=== PATIENT | female | born 1980 | race Caucasian/White ===

== ENCOUNTER 2018-01-29 00:12 | Emergency (ER) | payer OTHER ==
[2018-01-29 00:23] VITALS: RESP 18
--- NOTE | 2018-01-29 00:37 | ED ---
General Adult HPI - General Chief complaint: Alcohol Stated complaint: addiction Time Seen by Provider: 01/29/18 00:37 Source: patient Mode of arrival: ambulatory Limitations: no limitations - History of Present Illness Initial comments: Candy is a 37-year-old female who presents to the emergency department today for treatment of alcohol abuse and referral to treatment center. Patient reports that she drinks 2-3 bottles of wine daily and has done so for a number of months, her family has become concerned and at this point her and her family came to the emergency department for her to receive for outpatient treatment centers. states that she wakes up every morning shaking and feeling her heart race , she reports that the symptoms go away when she begins to drink. Patient states that she has never been through alcohol withdrawal, she's never had seizures or hallucinations when she is not drinking but she has been drinking daily for a long period of time. The patient denies any intent to harm herself. She recognizes that she has now called abuse problem. She's never been in treatment before. She has social support as her mother and father are at bedside to support her and her recovery. She reports that her last drink was earlier today. - Related Data Previous Rx's Medication Instructions Recorded LORazepam [Ativan] 0.5 mg PO BID #15 tab 04/20/15 chlordiazePOXIDE HCl [Librium] 50 mg PO QID #34 capsule 01/29/18 Allergies Allergy/AdvReac Type Severity Reaction Status Date / Time shellfish derived [Crab] Allergy Rash/Hives Verified 01/29/18 00:23 Review of Systems ROS Statement: Those systems with pertinent positive or pertinent negative responses have been documented in the HPI. ROS Other: All systems not noted in ROS Statement are negative. Past Medical History Additional Past Medical History / Comment(s): MITRAL VALVE PROLAPSE, HYPOGLYCEMIA History of Any Multi-Drug Resistant Organisms: None Reported Past Surgical History: Breast Surgery Additional Past Surgical History / Comment(s): breast reduction. chin, liposuction Past Psychological History: Anxiety Smoking Status: Current every day smoker Past Alcohol Use History: Abuse, Daily Past Drug Use History: None Reported General Exam Limitations: no limitations General appearance: alert Head exam: Present: atraumatic Eye exam: Present: normal appearance ENT exam: Present: normal exam Neck exam: Present: normal inspection, full ROM Respiratory exam: Absent: respiratory distress, wheezes Cardiovascular Exam: Present: regular rate GI/Abdominal exam: Present: soft. Absent: distended Rectal exam: Present: deferred Extremities exam: Present: full ROM Neurological exam: Present: alert, oriented X3 Psychiatric exam: Present: depressed. Absent: homicidal ideation, suicidal ideation Skin exam: Present: warm, dry, other (mcguire erythema, rhinophima) Course Vital Signs 01/29/18 01/29/18 00:18 01:37 Temperature 98.7 F 98.4 F Pulse Rate 99 88 Respiratory 18 18 Rate Blood Pressure 163/111 135/93 O2 Sat by Pulse 97 96 Oximetry Medical Decision Making - Medical Decision Making The patient was seen and evaluated, history was obtained from the patient and both of her parents at bedside Patient with a history of alcohol abuse, seems to have withdrawal symptoms upon waking in the morning which resolved with drinking wine. She is presenting to the emergency department today asking for help with alcohol abuse therapy. Patient states that she feels ready to stop drinking and she recognizes this is not good for her and that it is harming her relationship with her family. Patient's last drink was earlier today and she is concerned that when she wakes in the morning she will have withdrawal symptoms. At first dose of Librium will be ordered in the emergency department. At this point the patient does not have any signs of alcohol withdrawal, I discussed with her the option for a Librium taper and referral to outpatient substance abuse facilities for treatment. Patient is agreeable to this. Parents are agreeable to this as well. I advised the patient that should she start taking Librium she absolutely cannot drink alcohol as both are [employer] depressants and can result in overdose and . The patient and her mother and father expressed understanding of this. I also advised the patient that if she develops symptoms of withdrawal which are worse than what she usually experiences in the morning she needs to return to the ER for reevaluation. I advised the parents that if the patient begins to have any hallucinations or odd behavior she needs to return to the ER as this may be involvement of DTs. All questions pertaining care were answered best my ability and the patient was discharged home with a prescription for a Librium taper and referral to outpatient substance abuse facilities. Disposition Clinical Impression: Alcoholic intoxication Disposition: HOME SELF-CARE Condition: Good Instructions: Alcohol Withdrawal (ED) Prescriptions: chlordiazePOXIDE HCl [Librium] 50 mg PO QID #34 capsule Is patient prescribed a controlled substance at d/c from ED?: Yes If prescribed controlled substance>3 days was MAPS reviewed?: No Referrals: Ty Delong MD [Primary Care Provider] - 1-2 days Time of Disposition: 01:12
[2018-01-29] MEDS ORDERED: chlordiazePOXIDE 25 MG CAP PO STA (01:06)
[2018-01-29 01:38] VITALS: BP 135/93; PULSE 88; TEMP 98.4
== END 2018-01-29 01:46 | disposition home or self-care (01) ==
LOC: EC 00:12 → SUPCPDRO 00:12 → EC 01:46
DX: F10.120 Alcohol abuse with intoxication, uncomplicated (principal); F17.200 Nicotine dependence, unspecified, uncomplicated; Z91.013 Allergy to seafood
CPT/HCPCS: 99283